=== PATIENT | male | born 1975 | race Caucasian/White ===

== ENCOUNTER 2020-10-27 23:40 | Inpatient (IN) | payer MEDICAID ==
[~2020-10-27] VITALS: Ht 188 cm; Wt 76.7 kg
--- NOTE | 2020-10-27 23:55 | NUR ---
Dr. Scott at bedside for MSE.
[2020-10-28] VITALS (24 sets, daily range): BP systolic 79–118; BP diastolic 36–63
[2020-10-28] MEDS ORDERED: PANTOPRAZOLE SODIUM 40 MG VIAL IV ONE
[2020-10-28 00:23] LABS: MEAN CORPUSCULAR HEMOGLOBIN 32.8 uug (23.8-33.4); PLATELET COUNT (AUTO) 219 K/uL (152-348)
[2020-10-28] MEDS ORDERED: OCTREOTIDE ACETATE DRIP 500 MCG in IV NORMAL SALINE 99 ML IV STA (00:25)
[2020-10-28] MEDS ORDERED: OCTREOTIDE ACETATE 50 MCG/1 ML ML IV STA (00:25)
[2020-10-28] MEDS ORDERED: PANTOPRAZOLE SODIUM 40 MG VIAL ONE (00:25)
[2020-10-28 00:26] LABS: HEMATOCRIT 18.8 % (36.7-47.1)
--- NOTE | 2020-10-28 00:30 | NUR ---
Dr. Scott speaking with Dr. Lainez for GI consult.
[2020-10-28 00:42] LABS: CREATININE 1.5 mg/dL (0.6-1.3); POTASSIUM 3.5 mmol/L (3.5-5.1)
[2020-10-28] MEDS ORDERED: LORAZEPAM 2 MG/1 ML VIAL IV ONE (00:45)
[2020-10-28] MEDS ORDERED: CEFTRIAXONE 1 G in IV DEXTROSE 5% 50 ML IV ONE (00:45)
[2020-10-28 00:47] LABS: BILIRUBIN,TOTAL 2.4 mg/dL (0.2-1.0); TOTAL PROTEIN, SERUM 5.8 g/dL (6.4-8.2)
--- NOTE | 2020-10-28 00:50 | NUR ---
Called [facility] to page Dr. Noel.
[2020-10-28] MEDS ORDERED: IV NORMAL SALINE 1000 ML BAG IV ONE ×2 (01:00)
[2020-10-28] MEDS ORDERED: CEFTRIAXONE /D5W 50ML IVPB **ER PYXIS IV ONE (01:04)
[2020-10-28] MEDS ORDERED: LORAZEPAM 2 MG/1 ML VIAL ONE (01:04)
[2020-10-28] MEDS ORDERED: OCTREOTIDE ACETATE 500 MCG/1 ML VIAL ONE (01:05)
[2020-10-28] MEDS ORDERED: OCTREOTIDE ACETATE 50 MCG/1 ML ML ONE (01:06)
--- NOTE | 2020-10-28 01:25 | NUR ---
Dr. Scott to panel call with Dr. Noel. Pt accepted for admission to CCU, diagnosis: GI bleed.
[2020-10-28] MEDS ORDERED: ONDANSETRON 4 MG/2 ML VIAL IV PRN (01:30)
[2020-10-28] MEDS ORDERED: Z GUARD REMEDY PASTE 57 GM TUBE TOP PRN (01:30)
[2020-10-28] MEDS ORDERED: MAGNESIUM HYDROXIDE 30 ML LIQUID UDC PO PRN (01:30)
[2020-10-28] MEDS ORDERED: ACETAMINOPHEN 325 MG TABLET PO PRN (01:30)
--- NOTE | 2020-10-28 01:58 | NUR ---
Pt out of ER for CT.
[2020-10-28] MEDS ORDERED: OCTREOTIDE ACETATE DRIP 1,250 MCG in IV NORMAL SALINE 250 ML IV ONE (02:00)
--- NOTE | 2020-10-28 02:03 | NUR ---
Report given to [facility] CCU.
[2020-10-28] MEDS ORDERED: IOHEXOL 300MG/ML 100 ML INFUS..BTL ONE (02:05)
[2020-10-28] MEDS ORDERED: SWABABLE VALVE TRANSFER SET EA MC ONE (02:05)
[2020-10-28] MEDS ORDERED: IV NORMAL SALINE 250 ML IV ONE (02:05)
--- NOTE | 2020-10-28 02:30 | NUR ---
Pt back to ER from CT.
[2020-10-28] MEDS: IV NS 1000 ML 1,000 ML IV PRN ×2 (03:00→11:20)
[2020-10-28] MEDS ORDERED: OCTREOTIDE ACETATE DRIP 500 MCG in IV NORMAL SALINE 99 ML IV PRN (03:00)
--- NOTE | 2020-10-28 03:00 | NUR ---
Received patient from the ER via [employer]. Patient is A/Ox3 calm and cooperative. Patient connected to the monitor and showed sinus tachycardia HR 105. Patient arrived on 3L NC, however I left him on room air to see how he saturated and he remained 100% after 10 minutes. Patient wished to keep the NC on so I titrated it down to 2L for comfort. Peripheral lines include Right AC 18g and Right hand 18g. Patient running NS @75ml/hr and Sandostatin @50mcg/hr. Despite him being anemic, the patient appears normal in color, no pallor or jaundiced appearance. Patient wearing his street clothes, changed into hospital gown, however he insisted that he wanted to keep his jeans on, despite me having comfy scrub pants for him to wear. Patient seems to believe he will not be here long.
--- NOTE | 2020-10-28 04:15 | NUR ---
Spoke to the patient regarding his condition. When I asked about his history with alcohol, he informed me that he has been drinking heavily since college, with it starting out as mostly social with friends, however since he moved out here to [place] around 2005 (he is originally from [place]), he never stopped until his most recent attempt. I did my best to inform him of the seriousness of his condition and my experiences with others who succumbed to their alcoholism at a young age, most around his age and younger. I wanted to make sure he understood where he is at with his disease, describing in detail how his disease will progress, that what we are seeing in his scans and the changes to his liver, and with his GI bleeding, are signs that he is starting to do significant damage to his body. What I was telling him seemed to sink in as he seemed greatly concerned by what I was telling him. I eased him mind a bit by telling him he still has a chance, however I greatly emphasized that he needs to stop drinking now or he is just going to get worse, and that I want to see him survive. I spoke with his brother and father and bother are very concerned for his wellbeing, so he has a support system with people that care about him and want to see him change his life and be healthy. His younger brother Taz informed me that he never admits, nor will tell you how much he drinks and how bad it is, however he told me he drinks a significant amount. He also told me that he has his most recent FibroScan of his liver done a week and a half ago and he can get those to us if the doctor wants them as well as any other records he has. He really wants to see his brother get better.
--- NOTE | 2020-10-28 05:30 | NUR ---
Patient SBP dropped below 90, recycled and maintains mid to low 80s. Patient awoken and assessed. Patient not complaining of dizziness, nor is patient altered. Patient states he is feeling great and was sleeping very well. Due to the patient being asymptomatic, I am going to assume that this is a normal BP for when he is asleep. No call to .
--- NOTE | 2020-10-28 05:55 | NUR ---
First unit pRBCs finished transfusing. Patient remains afebrile and stable, no signs of reaction, no complaints from the patient. Second unit to begin now. VS charted accordingly.
[2020-10-28] MEDS ORDERED: LORAZEPAM 2 MG/1 ML VIAL IV PRN ×2 (06:30)
[2020-10-28 07:47] LABS: BILIRUBIN,DIRECT 1.3 mg/dL (0.0-0.2); BILIRUBIN,TOTAL 1.7 mg/dL (0.2-1.0); TOTAL PROTEIN, SERUM 4.6 g/dL (6.4-8.2)
[2020-10-28] MEDS: PANTOPRAZOLE SODIUM 40 MG VIAL IV SCH ×2 (08:54→21:02)
[2020-10-28] MEDS: OCTREOTIDE ACETATE DRIP 500 MCG in IV NORMAL SALINE 99 ML IV SCH ×2 (09:06→19:00)
--- NOTE | 2020-10-28 10:46 | NUR ---
SPOKE TO BRIAN PEREZ AND SHE INFORMED ME THAT THERE IS NO CLS TO RELEASE [facility] UNTIL 2PM. WILL INFORM PRIMARY IF ITS OK TO [employer] AND TRANSFUSE UNTIL THIS TIME.
--- NOTE | 2020-10-28 11:20 | NUR ---
Kaylee in the unit to see patient. Will remain NPO for now. OR called and Dr. Rogers has scheduled for EGD at 1930 tonight. [facility] canceled for now.
--- NOTE | 2020-10-28 19:14 | NUR ---
Patient taken down to OR for EGD procedure. Patient stable on transport. Consent signed, preop checklist completed.
[2020-10-28] MEDS ORDERED: MIDAZOLAM HCL 2 MG/2 ML VIAL ONE (19:22)
[2020-10-28] MEDS ORDERED: EPINEPHRINE 1 MG/1 ML AMP ONE (19:31)
[2020-10-28] MEDS ORDERED: IV LACTATED RINGERS SOLUTION 1,000 ML BAG IV ONE (19:45)
[2020-10-28] MEDS ORDERED: LIDOCAINE-MPF 2% 5 ML VIAL IJ ONE (19:45)
[2020-10-28] MEDS ORDERED: PROPOFOL 200 MG/20 ML BOTTLE IV ONE (19:45)
--- NOTE | 2020-10-28 20:40 | NUR ---
Patient back in the unit from PACU s/p EGD procedure. Patient is awake a/ox3, not complaining of any discomfort or pain. no sob or signs of distress. Patient connected back on the monitor showing SR no ectopy, BP stable, 96% on room air. Report received from PACU nurse. No active bleeding found during the procedure. Orders in chart, Dr. Lainez discontinued Sandostatin infusion and placed the patient on a regular diet. I conducted a swallow eval and patient has a good swallow reflex with good laryngeal elevation. No signs of aspiration or difficultly swallowing, no complaints from the patient. Confirmed with pharmacy that they received faxed medication orders from PACU with the discontinued Sandostatin.
--- NOTE | 2020-10-28 20:48 | NUR ---
Spoke with the brother Waqar, and updated him on the patient's condition s/p EGD procedure. Waqar expressed concerns that now he appears to be a bit better and the bleeding is resolved, that the patient will just be discharged and go right back home to drinking. He is looking for a social work msw who can arrange for the patient to be discharged from the hospital to a rehab center. I told him to call back after 8 tomorrow morning and he would be able to talk with someone who can assist in making those arrangements.
[2020-10-28] MEDS ORDERED: CEFTRIAXONE 1 G in IV DEXTROSE 5% 50 ML IV SCH (21:00)
[2020-10-29] VITALS (20 sets, daily range): BP systolic 83–117; BP diastolic 38–72
[2020-10-29] MEDS: IV NS 1000 ML 1,000 ML IV PRN ×2 (01:03→14:29)
[2020-10-29] MEDS: CEFTRIAXONE 1 G in IV DEXTROSE 5% 50 ML IV SCH (01:03)
[2020-10-29 05:13] LABS: MEAN CORPUSCULAR VOLUME 97.3 fL (73.0-96.2)
[2020-10-29 05:16] LABS: MEAN CORPUSCULAR HEMOGLOBIN 33.2 uug (23.8-33.4); PLATELET COUNT (AUTO) 170 K/uL (152-348)
[2020-10-29 05:18] LABS: HEMATOCRIT 20.5 % (36.7-47.1)
[2020-10-29 05:35] LABS: PHOSPHOROUS 2.5 mg/dL (2.5-4.9); POTASSIUM 3.4 mmol/L (3.5-5.1)
[2020-10-29 05:47] LABS: THYROID STIMULATING HORMONE 0.335 mIU/mL (0.358-3.740)
[2020-10-29] MEDS: PANTOPRAZOLE SODIUM 40 MG VIAL IV SCH ×2 (08:08→21:06)
[2020-10-29] MEDS ORDERED: POTASSIUM CHLORIDE 50 ML IV SCH (10:00)
[2020-10-29] MEDS ORDERED: POTASSIUM CHLORIDE 20 MEQ TAB.PRT.SR PO ONE (10:00)
[2020-10-29 10:30] LABS: HEMATOCRIT 20.9 % (36.7-47.1)
--- NOTE | 2020-10-29 11:37 | NUR ---
Pt.was seen by BALA LINDSAY DNP with new orders.
--- NOTE | 2020-10-29 18:33 | NUR ---
Pt. eating dinner, denies any pain or SOB.
[2020-10-29 20:09] LABS: HEMATOCRIT 22.9 % (36.7-47.1)
--- NOTE | 2020-10-29 20:35 | NUR ---
Received report from CCU .Patient transferred to med-surg unit from CCU. Patient in bed alertx4.Denies pain.No s/s of distress noted with O2 at 2LPM via nc .Iv on right hand 18 g patent and intact with IVF infusing well. Tolerated well. Patient ambulates to bathroom .Voided well.VSs.Call light with in reach. Will continue to monitor.
[2020-10-30] MEDS: CEFTRIAXONE 1 G in IV DEXTROSE 5% 50 ML IV SCH (00:46)
[2020-10-30 04:00] VITALS: BP 104/66
[2020-10-30] MEDS: IV NS 1000 ML 1,000 ML IV PRN (06:42)
[2020-10-30 07:06] LABS: HEMATOCRIT 22.8 % (36.7-47.1); MEAN CORPUSCULAR HEMOGLOBIN 32.2 uug (23.8-33.4); MEAN CORPUSCULAR VOLUME 98.9 fL (73.0-96.2); PLATELET COUNT (AUTO) 189 K/uL (152-348)
[2020-10-30 07:17] LABS: CREATININE 0.9 mg/dL (0.6-1.3); POTASSIUM 3.9 mmol/L (3.5-5.1)
[2020-10-30 08:16] LABS: MAGNESIUM 2.1 mg/dL (1.8-2.4); PHOSPHOROUS 1.8 mg/dL (2.5-4.9)
[2020-10-30] MEDS: PANTOPRAZOLE SODIUM 40 MG VIAL IV SCH (08:26)
[2020-10-30 11:51] VITALS: BP 106/69
[2020-10-30] MEDS ORDERED: PANT40TA2 PO (13:12)
[2020-10-30] MEDS ORDERED: LEVO500T90 PO (13:12)
--- NOTE | 2020-10-30 14:00 | NUR ---
dc orders received noted and carried out.dc instruction and education given to the pt .dc heplock per md orders,.pt said he will follow up with his pcp in one week pt left the facility via walking from the hospital in stable condition
== END 2020-10-30 14:00 | disposition home or self-care (01) | DRG 241 ==
LOC: ER 23:47 → CCU 10-28 02:14 → MEDSURG3 10-29 20:45
PROVIDERS: ADMIT Student in an Organized Health Care Education/Training Program; ATTEND Nurse Practitioner Acute Care
PROC: 0DJ08ZZ Inspection of Upper Intestinal Tract, Via Natural or Artificial Opening Endoscopic (ICD-10-PCS; principal; 2020-10-28)
PROC: 30233N1 Transfusion of Nonautologous Red Blood Cells into Peripheral Vein, Percutaneous Approach (ICD-10-PCS; principal; 2020-10-28)
DX: K29.71 Gastritis, unspecified, with bleeding (principal); N17.0 Acute kidney failure with tubular necrosis; E44.0 Moderate protein-calorie malnutrition; K85.90 Acute pancreatitis without necrosis or infection, unspecified; E87.1 Hypo-osmolality and hyponatremia; D68.9 Coagulation defect, unspecified; D62 Acute posthemorrhagic anemia; K22.70 Barrett's esophagus without dysplasia; F10.10 Alcohol abuse, uncomplicated; D72.829 Elevated white blood cell count, unspecified; F17.210 Nicotine dependence, cigarettes, uncomplicated; E86.1 Hypovolemia; K21.9 Gastro-esophageal reflux disease without esophagitis; K76.0 Fatty (change of) liver, not elsewhere classified; R74.01 Elevation of levels of liver transaminase levels; Z68.21 Body mass index [BMI] 21.0-21.9, adult; Z20.822 Contact with and (suspected) exposure to COVID-19
CPT/HCPCS: 36415; 70030-TC; 71045; 83605; 83690; 83735; 84100; 84443; 85018; 85025; 85730; 86850; 86900; 86901; 86920; 87040; 93005; 93307; A4217; A4663; C9113; G0378; J0171; J0696; J2060; J2250; J2354; J3490; J7030; J7050; J7060; J7120; P9016; P9021; Q9967